=== PATIENT | male | born 1980 | race Caucasian/White ===

== ENCOUNTER 2017-11-26 08:46 | Emergency (ER) | payer OTHER ==
[~2017-11-26] VITALS: Ht 177.8 cm; Wt 109.8 kg
--- NOTE | 2017-11-26 09:58 | NUR ---
[phone] DR. AILYN VILLEGAS
[2017-11-26 10:32] VITALS: BP 150/109
--- NOTE | 2017-11-26 10:32 | NUR ---
Patient discharged to home in stable condition. Written and verbal after care instructions given. Patient verbalizes understanding of instruction.
== END 2017-11-26 10:34 | disposition home or self-care (01) ==
LOC: ER 08:48
DX: T18.8XXA Foreign body in other parts of alimentary tract, initial encounter (principal); X58.XXXA Exposure to other specified factors, initial encounter; Y93.89 Activity, other specified; Y92.89 Other specified places as the place of occurrence of the external cause; Y99.8 Other external cause status
CPT/HCPCS: 71045-TC; 74018; A4606; Z7610